=== PATIENT | female | born 1960 | race Caucasian/White ===

== ENCOUNTER 2017-04-16 05:52 | Day surgery (SDC) | payer OTHER ==
--- NOTE | 2017-04-09 12:31 | PCM.ANEPRE ---
Anesthesia Pre-Op Review Reason for Review: hgb A1c- diabetes Anesthesia Recommendations: Proceed with Procedure Additional Comments HGB A1c was 13.2 in January. The blood sugar at that time was 674. Check Blood sugar on day of surgery and if acceptable proceed. Heber Marin MD Apr 09, 2017 12:31
[~2017-04-16] VITALS: Ht 167.6 cm; Wt 77.2 kg
[~2017-04-16 05:52] MED LIST: AMIT10TA6 PO; CARB15DR2 OP; CHOL10008 PO; CYCL1DRO OP; CYCL5TAB PO; DICL100G8 TOPICAL; DOCO1CAP3 PO; FLUT9.9S NS; GABA-502 PO; GEMF600T3 PO; INSU500V SUBQ; LEVO150T5 PO; LORA1TAB PO; LOSA25TA2 PO; Lactated Ringer's 1,000 ML IV SCH; METF-495 PO; MINE3.5O OP; MULT-1018 PO; NPH,100V10 SUBQ; OXYB15TA PO; PIOG15TA21 PO; SERT20OR PO; TRAM-14 PO; VENL37.53 PO
[2017-04-16] MEDS ORDERED: Propofol 10,000 mCg/mL 20 mL Inj ONE (05:53)
[2017-04-16] MEDS ORDERED: Ondansetron 2 mg/mL 2 mL Inj ONE (05:53)
[2017-04-16] MEDS ORDERED: Ketamine 10 mg/mL 20 mL Inj ONE (05:53)
[2017-04-16] MEDS ORDERED: fentaNYL-PF 50 mCg/mL 2 mL Inj ONE (05:53)
[2017-04-16 06:36] VITALS: BP 130/68; PULSE 87; RESP 17; O2SAT 98
[2017-04-16] MEDS ORDERED: Lactated Ringer's 1,000 ML IV ONE (06:51)
[2017-04-16] MEDS ORDERED: Lactated Ringer's 500 ML IV PRN (07:11)
[2017-04-16] MEDS ORDERED: Lactated Ringer's 1,000 ML IV SCH (07:11)
--- NOTE | 2017-04-16 07:11 | PCM.HPANE ---
Patient Data Surgeon Admitting Provider: Attending Provider:Silverio Bustillos DO Primary Care Physician:Noreen Thurston PA-C Other Provider:Mitch Villanueva Anesthesia Reason for Visit Left Middle Trigger Finger Ht/WT & BMI Height (Feet): 5 Height (Inches): 6.00 Weight (Kilograms): 77.150 Body Mass Index 27.00 Allergies Coded Allergies: lisinopril (Verified Allergy, Intermediate, cough, 04/08/17) morphine (Verified Allergy, Unknown, NAUSEA, 04/08/17) Past Anesthesia History Anesthesia History: Denies:: Abnormal Airway, Anesthesia Reactions, Difficult Intubation, Fam Anesthesia Reaction, Fam Malignant Hypertherm, Malignant Hyperthermia Diabetes History Hx Diabetes?: Yes (type I) Type of Diabetes: Type II Glycemic Control: Insulin & Oral Medication Current Bedside Blood Glucose: 274 MRSA MRSA: No Medications Blood Thinner: Aspirin Hypertension Medication: Yes Home Meds Incl Beta Keyla: No Reported Medications Insulin Regular, Human (HUMulin-R U-500 Insulin Vial)500 Unit/1 Ml Vial10 Unit SUBQ BID #1 VIAL Ref 0 before breakfast and supper 04/08/17 Cholecalciferol (Vitamin D3) (Vitamin D3)1,000 Unit Tab.chew1,000 Unit PO DAILY 04/08/17 Tramadol (Ultram)50 Mg Ebcxzs40-613 Mg PO TID PRN Pain Ref 0 04/08/17 Cyclosporine (Restasis)1 Each Droperette1 Each OP DAILY PRN dry eyes 04/08/17 Pioglitazone 15 Mg Mrimvx80 Mg PO DAILY Ref 0 04/08/17 Oxybutynin Chloride ER 15 Mg Tab.er.2415 Mg PO DAILY Ref 0 04/08/17 NPH, Human Insulin Isophane (Novolin-N U100 Insulin Vial)100 Unit/1 Ml Vial20 Unit SUBQ HS #1 VIAL Ref 0 04/08/17 Multivitamin (Multi Vitamin Daily)1 Each Tablet1 Each PO DAILY 30 Days Ref 0 04/08/17 Metformin ER 500 Mg Tablet1,000 Mg PO BID Ref 0 04/08/17 Lorazepam 1 Mg Tablet1 Mg PO TID PRN For Anxiety Ref 0 04/08/17 Levothyroxine 150 Mcg Slpotx911 Mcg PO DAILY Ref 0 04/08/17 Sertraline HCl (Zoloft)20 Mg/1 Ml Oral.gxjk138 Mg PO DAILY #1 BOTTLE Ref 0 04/08/17 Gemfibrozil 600 Mg Oflbrn032 Mg PO BID #60 TABLET 04/08/17 Gabapentin 300 Mg Akzcbgo923 Mg PO TID Ref 0 04/08/17 Fluticasone Propionate (Flonase Allergy Relief)50 Mcg/Actuation [place].susp2 Sprays NS PRN For Congestion 04/08/17 Docosahexanoic Acid/Epa (Fish Oil Concentrate Softgel)1 Each Capsule1 Each PO DAILY 04/08/17 Venlafaxine ER (Effexor XR)37.5 Mg Wkdvvkc52.5 Mg PO DAILY Ref 0 04/08/17 Cyclobenzaprine 5 Mg Tablet5-10 Mg PO HS PRN Spasm Ref 0 04/08/17 Losartan Potassium (Cozaar)25 Mg Kxaqbx98 Mg PO DAILY 04/08/17 Amitriptyline 10 Mg Xfsuhl82-75 Mg PO HS Ref 0 04/08/17 Discontinued Reported Medications Diclofenac Gel (Voltaren Gel)100 Gm Tube1 Applic TOPICAL QID PRN For Pain #1 TUBE 04/08/17 Mineral Oil/Petrolatum,White (Refresh Lacri-Lube Ointment)3.5 Gm Oint...g.3.5 Gm OP DAILY 04/08/17 Carboxymethylcellulos/Glycerin (Refresh Optive Eye Drops)15 Ml Drops15 Ml OP DAILY PRN dry eyes 04/08/17 History History of ENT Problems?: Yes HEENT History: Positive for:: Cataracts (bilateral surgery ) TMJ (grinds, no nightguard) Denies:: Abnormal Airway Difficult Intubation Dysphagia Glaucoma Hearing Problem Sinus Problem Denture Type: None Teeth Condition: Within Normal Limits Other HEENT Pertinent History: implant elizabeth- in place- not crowned Hx of Heart Problems?: No Cardiovascular History: Positive for:: Hypertension Denies:: AICD Atrial Fibrillation Chest Pain Congestive Heart Failure Coronary Artery Disease Edema Pacemaker Valvular Heart Disease Hx of Respiratory Problem?: Yes Respiratory History: Positive for:: Pneumonia (twice- last Aug 2016) Denies:: Asthma COPD Emphysema Oxygen Administration Tuberculosis Use of C-PAP Machine (had cpap machine, lost weight no longer uses) Use of Inhalers / NEBS Hx Neurologic Problems?: No Neurological History: Denies:: CVA Headaches (occasional ) Multiple Sclerosis Parkinson's Disease Seizures TIA Hx of GI Problems?: No Hx of Problems?: No Genitourinary History: Denies:: Kidney Stones Urinary Tract Infection Female Hx: Denies:: Currently Problems with Breasts? Skin History: Denies:: History Skin Disorders? Pressure Ulcers Hx Musculoskeletal Problems?: Yes Musculoskeletal History: Positive for:: Musculoskeletal Trauma (left middle trigger finger current admission problem) Osteoarthritis Denies:: Back Injury Fibromyalgia Joint Replacement Systemic Lupus Hx of Psycho/Social Problems?: Yes Psycho Social History: Positive for:: Anxiety Hx Depression Hx Surgeries?: Yes (Hyst, Cataracts, Bladder Susp, ) Hx Any Other Health Problems?: Yes Other History: Positive for:: Thyroid Disease Denies:: Cancer History Blood Transfusions: Denies:: Accept Blood Products? Blood Transfuse Reaction Blood Transfusions Hx Diabetes: Yes (type I)Bedside Blood Glucose: 274 Hx Alcohol Use: YesAlcoholic Drinks Per Day: one drink weeklyHx Substance Use : No Smoking Status: Never Smoker Have You Smoked inLast 12 mo: No Stop/Bang S-Snoring: Do You Snore Loudly: Yes T-Tired: feel tired, fatigued: Yes O-Obsered: Observed not breath: No P-Blood Pressure: treated: Yes B- Body Mass Index > 35 kg/m2: No A- Age over 50: Yes N- Neck Large Circumference: No G- Gender Male: No TAMARA Total Score: 4 TAMARA Risk Assessment: High Risk, =/>3 Yes TAMARA Category 4 OutPt Procedure: Yes Risk Assessment Category Category 1A: Patient has history of documented sleep apnea, and HAS NOT received any narcotic, sedative or anesthesia administration during this stay. Category 1B: Patient has history of documented sleep apnea, and HAS received any narcotic , sedative or anesthesia administration during this stay Category 2: Patient has SUSPECTED Obstructive Sleep Apnea, and HAS received any narcotic , sedative or anesthesia administration during this stay. Category 3: Patient has SUSPECTED Obstructive Sleep Apnea and HAS NOT received narcotic, sedative or anesthesia administration during this stay. Category 4: Outpatient in Procedural Areas with known sleep apnea or who screen positive for High Risk via the STOP/BANG questionnaire. Exam Exam Vital Signs Vital Signs Date Time Temp Pulse Resp B/P Pulse Ox O2 Delivery O2 Flow Rate FiO2 04/16/17 06:36 36 87 17 130/68 98 Room Air General Appearance: Alert, Oriented X3, Cooperative, No Acute Distress HEENT/AIRWAY: MP 2 Lungs: Clear to Auscultation, Normal Air Movement Heart: Exam Unremarkable, Regular Rate/Rhythm, No Murmurs/Rubs/Gallops Meds/Labs/Diagnostics Admission Meds Current Medications Lactated Ringer's (Lr) 1,000 ml @ ud STK-MED ONCE IV Last administered on 06:51; Start 04/16/17 at 06:51; Stop 04/16/17 at 06:52; Status DC Lidocaine/ Epinephrine (Xylocaine 1%-Epinephrine 1:100,000 Inj) 20 ml STK-MED ONCE INFILTRATE Last administered on 04/16/17 07:04; Start 04/16/17 at 07:04; Stop 04/16/17 at 07:06; Status DC Bedside Blood Glucose: 274 Plan Impression Patient chart reviewed, patient interviewed and anesthestic plan with risks, benefits, and alternatives discussed, and informed consent obtained. ASA Physical Status: ASA3 Severe Disease Anesthetic Plan: MAC Bene/Risks/Altern/Consents: Yes HP Complete Prior to Induction: Yes Marcelo Denney MD Apr 16, 2017 07:11
[2017-04-16] MEDS ORDERED: EPHEDrine Sulfate 50 mg/mL Inj IVPUSH PRN (07:15)
[2017-04-16] MEDS ORDERED: MetoCLOpramide 5 mg/mL 2 mL Inj IVPUSH PRN (07:15)
[2017-04-16] MEDS ORDERED: Phenylephrine 10,000 mCg/mL Inj IVPUSH PRN (07:15)
[2017-04-16] MEDS ORDERED: fentaNYL-PF 50 mCg/mL 2 mL Inj IVPUSH PRN (07:15)
[2017-04-16] MEDS ORDERED: Dexamethasone 4 mg/mL Inj IVPUSH PRN (07:15)
[2017-04-16] MEDS ORDERED: Ondansetron 2 mg/mL 2 mL Inj IVPUSH PRN (07:15)
[2017-04-16] MEDS ORDERED: Sodium Bicarb (50 mEq) 8.4% 1 mEq/mL 50 mL Syringe IVPUSH ONE (07:24)
[2017-04-16] MEDS ORDERED: Lidocaine 1%-Epi 1:100,000 20 mL Inj INFILTRATE ONE (07:30)
[2017-04-16] MEDS ORDERED: HYDROcodone-APAP 5-325 mg Tablet PO PRN (07:35)
[2017-04-16 08:04] VITALS: BP 107/60; PULSE 77; RESP 18; O2SAT 98
--- NOTE | 2017-04-16 08:18 | OP ---
[address] [address] OPERATIVE REPORT PATIENT: MARYSOL DAY : 1960 MR#: [id number] ADMIT: 04/16/2017 JOB ID: [id number] DATE OF SURGERY: 04/16/2017 PREOPERATIVE DIAGNOSIS(ES): Left middle finger trigger finger. POSTOPERATIVE DIAGNOSIS(ES): Left middle finger trigger finger. PROCEDURE: Left middle finger A1 curtis release. SURGEON: Silverio Bustillos DO ANESTHESIA: Monitored anesthesia care with local. HISTORY: The patient is a pleasant 56-year-old female that presents with a longstanding history of left middle finger catching and locking. She was treated conservatively with steroid injections with minimal long-standing relief in her symptoms. I thus discussed with the patient due to her persistent symptoms, the risks, benefits and indications to proceed with a left middle finger A1 curtis release. She understood the risks include, but not limited to, neurovascular injury, tendon injury, infection, failure of resolution of the preoperative symptoms, recurrent triggering, stiffness, persistent pain which may require further intervention. Patient had all questions answered. Consent was signed and placed in the chart. PROCEDURE IN DETAIL: The patient was brought to the operative suite and placed supine on the operating table. Surgical time-out was performed. Every one in the room was in agreement. Appropriate anesthesia was obtained in the preoperative suite, with the local anesthetic utilizing 1% lidocaine with epinephrine, as well as sodium bicarb. The patient's hand was well anesthetized at the incision planned site; thus, the left hand was prepped and draped in a sterile fashion. A 1 cm incision was made in an oblique fashion overlying a palmar crease directly overlying the A1 curtis. Dissection was carried down to the A1 curtis. Care was taken to protect branches of the digital neurovascular bundles. The A1 curtis was identified and incised in line with the underlying flexor tendons. The flexor tendons were found to be completely released from the A1 curtis. The patient was asked to demonstrate a full composite fist and was able to demonstrate excellent grasp without any further catching and locking of the left middle finger. Copious irrigation was performed followed by closure of skin with 5-0 nylon in a simple interrupted fashion. ESTIMATED BLOOD LOSS: Less than 1 cc. COMPLICATIONS: None. DISPOSITION: The patient tolerated the procedure well. Anesthesia was reversed. The patient was transferred back to the recovery room. POSTOPERATIVE PLAN: The patient follow up in the office in two weeks. We will remove the patient's sutures at that time. We will have him start working on range of motion and scar mobilization.
--- NOTE | 2017-04-16 08:50 | PCM.ANEP1 ---
Post Anesthesia PACU Phase 1 Assessment Vital Signs Vital Signs Date Time Temp Pulse Resp B/P Pulse Ox O2 Delivery O2 Flow Rate FiO2 04/16/17 06:36 36 87 17 130/68 98 Room Air Anesthetic Administered: MAC Level of Alertness: Awake, talking SANDHU's with Equal Strength: Yes Pain: No Nausea or Vomiting: No CV Function & Hydration Stable: Yes Airway Device: natural Oxygen Delivery: Nasal Cannula Lungs: Clear to Auscultation, Normal Air Movement Dermatome Level: Full Sensation PACU Phase 2 Assessment Complications: No Follow up Care: No Patient Instructions Provided: N/A Marcelo Denney MD Apr 16, 2017 08:50
[2017-04-16 09:10] VITALS: BP 103/57; PULSE 87; RESP 18; O2SAT 96
== END 2017-04-16 23:59 | disposition home or self-care (01) ==
LOC: SAS 05:52
PROVIDERS: ATTEND Orthopaedic Surgery
DX: M65.332 Trigger finger, left middle finger (principal); I10 Essential (primary) hypertension; E78.5 Hyperlipidemia, unspecified; E11.65 Type 2 diabetes mellitus with hyperglycemia; E78.1 Pure hyperglyceridemia; G47.33 Obstructive sleep apnea (adult) (pediatric); M79.7 Fibromyalgia; F41.8 Other specified anxiety disorders; E03.9 Hypothyroidism, unspecified; Z79.4 Long term (current) use of insulin; Z79.84 Long term (current) use of oral hypoglycemic drugs